=== PATIENT | male | born 1990 ===

== ENCOUNTER 2022-06-14 15:37 | Emergency (ER) | payer MEDICAID ==
[~2022-06-14] VITALS: Ht 177.8 cm; Wt 91.0 kg
[2022-06-14 16:27] VITALS: BP 145/91
== END 2022-06-14 19:16 | disposition left against medical advice (07) ==
LOC: EMS 15:40
DX: Z00.00 Encounter for general adult medical examination without abnormal findings (principal); Z53.21 Procedure and treatment not carried out due to patient leaving prior to being seen by health care provider